=== PATIENT | male | born 1960 | race Caucasian/White ===

== ENCOUNTER 2017-06-26 20:54 | Inpatient (IN) | payer OTHER ==
[2017-06-26] MEDS ORDERED: NITROGLYCERIN (SL) 0.4 MG TAB SL (22:00)
[2017-06-26] MEDS ORDERED: ONDANSETRON 4 MG INJ IV (22:00)
[2017-06-26] MEDS ORDERED: NACL 0.9% 3 ML SYG IV (22:00)
[2017-06-26] MEDS ORDERED: DILTIAZEM 50 MG INJ IV (22:00)
[2017-06-26] MEDS ORDERED: morphine 2 MG INJ IV (22:00)
[2017-06-26] MEDS ORDERED: ACETAMINOPHEN 325 MG TAB PO (22:00)
[2017-06-26 22:43] LABS: ADD MAN DIFF? NO
[2017-06-26 22:48] LABS: BASOPHILS % 0.2 % (0.0-2.0); EOSINOPHILS # 0.3 10^3/ul (0.0-0.5); EOSINOPHILS % 3.7 % (0.0-7.0); HEMOGLOBIN 13.2 g/dl (14.0-18.0); LYMPHOCYTES # 3.4 10^3/ul (0.8-2.9); MEAN CORPUSCULAR HEMOGLOBIN 32.5 pg (29.0-33.0); MEAN CORPUSCULAR HGB CONC 33.8 g/dl (32.0-37.0); MEAN CORPUSCULAR VOLUME 96.1 fl (82.0-101.0); MEAN PLATELET VOLUME 11.5 fl (7.4-10.4); MONOCYTE # 0.7 10^3/ul (0.3-0.9); NEUTROPHIL # 3.8 10^3/ul (1.6-7.5); PLATELET COUNT 222 10^3/UL (140-415); RED BLOOD COUNT 4.06 10^6/ul (4.70-6.10); RED CELL DISTRIBUTION WIDTH 13.2 % (11.5-14.5)
[2017-06-26 22:48] LABS: WHITE BLOOD COUNT 8.2 10^3/ul (4.8-10.8)
[2017-06-26 23:02] LABS: CREATINE KINASE 61 IU/L (23-200)
[2017-06-26 23:05] LABS: ALANINE AMINOTRANSFERASE 25 IU/L (13-69); ALBUMIN/GLOBULIN RATIO 1.15; ALKALINE PHOSPHATASE 73 IU/L (42-121); ANION GAP 11 (8-16); ASPARTATE AMINO TRANSFERASE 17 IU/L (15-46); BILIRUBIN,INDIRECT 0.6 mg/dl (0-1.1); BILIRUBIN,TOTAL 0.6 mg/dl (0.2-1.3); BLOOD UREA NITROGEN 18 mg/dl (7-20); CALCIUM 8.5 mg/dl (8.4-10.2); CARBON DIOXIDE 24 mmol/L (21-31); CHLORIDE 112 mmol/L (97-110); CHOL/HDL RATIO 3.3 RATIO; CHOLESTEROL 93 mg/dl (100-200); CREATININE 0.76 mg/dl (0.61-1.24); GLUCOSE 133 mg/dl (70-220); HDL CHOLESTEROL 28 mg/dl (30-78); LDL CHOLESTEROL,CALCULATED 52 mg/dl; MAGNESIUM 1.8 mg/dl (1.7-2.5); POTASSIUM 4.2 mmol/L (3.5-5.1); SODIUM 143 mmol/L (135-144); TOTAL PROTEIN 5.6 g/dl (6.1-8.1); TRIGLYCERIDES 64 mg/dl (0-149)
[2017-06-26 23:15] LABS: CK INDEX 1.2; TROPONIN-I 0.015 ng/ml (0.00-0.12)
[2017-06-26 23:16] LABS: CK-MB 0.72 ng/ml (0.0-2.4)
[2017-06-27] MEDS ORDERED: DILTIAZEM 50 MG INJ IV (00:21)
[2017-06-27 03:18] LABS: HEMOGLOBIN A1C 5.5 % (0-5.9)
[2017-06-27] MEDS: MAGNESIUM SULFATE 1 GM/D5W 100 ML IVPB (05:20)
[2017-06-27] MEDS: ASPIRIN 81 MG TAB PO (08:23)
[2017-06-27] MEDS: CLOPIDOGREL 75 MG TAB PO (09:00)
[2017-06-27] MEDS ORDERED: ATORVASTATIN 80 MG TAB PO (21:00)
== END 2017-06-27 09:38 | disposition left against medical advice (07) | DRG 310 ==
LOC: MS4 20:54
DX: I48.91 Unspecified atrial fibrillation (principal); I25.10 Atherosclerotic heart disease of native coronary artery without angina pectoris; E78.5 Hyperlipidemia, unspecified; I10 Essential (primary) hypertension; Z53.21 Procedure and treatment not carried out due to patient leaving prior to being seen by health care provider; Z79.82 Long term (current) use of aspirin; I25.2 Old myocardial infarction; Z95.5 Presence of coronary angioplasty implant and graft; Z79.02 Long term (current) use of antithrombotics/antiplatelets
CPT/HCPCS: 80053; 80061; 82550; 82553; 83036; 83735; 84443; 84484; 85025